=== PATIENT | female | born 1960 | race African-American/Black ===

== ENCOUNTER 2017-05-04 12:38 | Inpatient (IN) ==
--- NOTE | 2017-05-04 13:17 | Emergency Department Note ---
Arrival - Arrival Chief Complaint: Abdominal / Flank Pain Stated Complaint: abd pain ED Nursing Triage Note: Transfer from [facility] ER for further evaluation of appendicitis. Accepted by Dr Ramires. +right lower abdominal pain onset @ 1700pm. +subjective fever. Vomited x one earlier today. Mode of Arrival: Stretcher Limitations: No Limitations Source: Patient Time Seen by Provider: 05/04/17 13:13 - History of Present Illness HPI Narrative: This 49-year-old black female presents with 24 hours of progressive right lower quadrant pain ultimately presenting to the [place] ER. She was evaluated there but despite all normal laboratories CT of the abdomen did reveal evidence of acute appendix. For this reason she was transferred here for tertiary care. Currently she is medically stable but in significant discomfort demanding get this thing out of me. Onset (ago): hour(s) (Patient presents 24 hours post onset of symptoms) Date of Last Menstrual Period: PM Allergies/Adverse Reactions: Allergies Allergy/AdvReac Type Severity Reaction Status Date / Time Sulfa (Sulfonamide Allergy Unknown/Unable Verified 05/04/17 12:53 Antibiotics) to obtain sulfamethoxazole Allergy Unknown/Unable Verified 05/04/17 12:53 [From Bactrim] to obtain trimethoprim [From Bactrim] Allergy Unknown/Unable Verified 05/04/17 12:53 to obtain Review of System - Review of System 12 point system: reviewed and no additional remarkable complaints except as stated - Review of System Constitutional: Present: as per HPI Gastrointestinal: Present: as per HPI Medical,Surgical,& Family Hx - Medical History Cardio: History of: Cardiac Dysrhythmia (A-fib) Musculoskeletal: History of: Musculoskeletal Problems (Arthritis) - Surgical History Abdominal Surgeries: Surgical HX of: Cholecystectomy Reproductive Surgeries: Surgical HX of;: Hysterectomy - Social History Smoking Status: Never smoker Frequency of Alcohol Use: None Type of Drug Use: None Exam Physical Examination: GENERAL: Obese black female in no acute distress. HEENT: Normocephalic. No trauma. Moist mucous membranes. EOMI. PERRLA. ENT NML NECK: Supple. No adenopathy. CARDIAC: Regular. No murmurs. Heart rate 75 CHEST: Clear to auscultation. No respiratory distress. O2 sat 99% ABDOMEN: Soft. Very tender right lower quadrant. Hypoactive bowel sounds. EXTREMITIES: No trauma. Normal ROM. No pedal edema. SKIN: No diaphoresis. No rash. NEURO: Alert. Oriented 3. Motor, sensory, vibratory intact. No focal deficits. Vital Signs: Vital Signs Temperature 97.8 F 05/04/17 12:38 Pulse Rate 75 05/04/17 12:38 Respiratory Rate 20 05/04/17 12:38 Blood Pressure 174/88 05/04/17 12:38 O2 Sat by Pulse Oximetry 99 05/04/17 12:38 Course - Reevaluation(s) Reevaluation #1: Discussed with patient hospitalization and her quite boisterous demand to get this thing out of her - Consultations Consultation #1: Dr. Ramires consulted for surgical intervention which he will do immediately. Results - Impressions EKG sinus rhythm with prolonged ID interval but normal QRS duration. Left ventricular hypertrophy nonspecific ST changes. No acute injury pattern noted. Disposition Clinical Impression: Acute appendicitis Case discussed with: patient Disposition: Still a Patient Condition: Guarded Time of Disposition: 13:57
[2017-05-04] MEDS ORDERED: ONDANSETRON 4 MG/2 ML VIAL IV STA (13:19)
[2017-05-04] MEDS ORDERED: HYDROmorphone 2 MG/1 ML VIAL IV STA (13:19)
[2017-05-04] MEDS ORDERED: ONDANSETRON 4 MG/2 ML VIAL ONE ×2 (13:25→18:13)
[2017-05-04] MEDS ORDERED: HYDROmorphone 2 MG/1 ML VIAL ONE (13:26)
--- NOTE | 2017-05-04 13:38 | General Surg History&Physical ---
Assessment and Plan (1) Acute appendicitis Status: Acute Assessment and plan: This patient has CT proven acute appendicitis. I recommended laparoscopic appendectomy but of also discussed the option of medical management. The patient would like to proceed with laparoscopic appendectomy. I have discussed the risks, benefits, and alternatives of the operation, and the expected outcomes have been reviewed. She would like to proceed with operative intervention. Current Visit: Yes (2) Morbid obesity Status: Acute Assessment and plan: No acute intervention planned Current Visit: Yes History of Present Illness Chief complaint: Abdominal pain History of present illness: Ms. Ly is a 57 year old female with a history of morbid obesity who presents to the hospital with abdominal pain that started yesterday. She was diagnosed with appendicitis on CT scan at an outside hospital and transferred here for surgery. She is having a lot of abdominal pain but otherwise looks stable. Allergies Allergy/AdvReac Type Severity Reaction Status Date / Time Sulfa (Sulfonamide Allergy Unknown/Unable Verified 05/04/17 12:53 Antibiotics) to obtain sulfamethoxazole Allergy Unknown/Unable Verified 05/04/17 12:53 [From Bactrim] to obtain trimethoprim [From Bactrim] Allergy Unknown/Unable Verified 05/04/17 12:53 to obtain Medical,Surgical,& Family Hx - Medical History Cardio: History of: Cardiac Dysrhythmia (A-fib) Musculoskeletal: History of: Musculoskeletal Problems (Arthritis) - Surgical History Abdominal Surgeries: Surgical HX of: Cholecystectomy Reproductive Surgeries: Surgical HX of;: Hysterectomy - Social History Smoking Status: Never smoker Frequency of Alcohol Use: None Type of Drug Use: None Exam - Constitutional Vitals: Period Temp Pulse Resp BP Sys/Mijares Pulse Ox Last 24 Hr 97.8 F-97.8 F 75-75 20-20 174-174/88-88 99 General appearance: no acute distress, morbidly obese - Head Head exam: Present: normal inspection, normocephalic - Eye Eye exam: Present: EOMI Pupils: Present: KONSTANTIN - ENT ENT exam: Present: normal exam Mouth exam: Present: normal external inspection, normal voice - Neck Neck exam: Present: normal inspection, trachea midline - Respiratory Respiratory exam: Present: clear to auscultation bilaterally. Absent: accessory muscle use, chest wall tenderness - Cardiovascular Cardiovascular exam: Present: RRR. Absent: systolic murmur, tachycardia - GI/Abdominal GI/Abdominal exam: Present: normal bowel sounds, guarding, tenderness (Right lower quadrant tenderness), rebound, soft - Extremities Exam Extremities exam: Present: normal inspection, normal capillary refill - Back Exam Back exam: Present: normal inspection - Neurological Exam Neurological exam: Present: alert, oriented X3 Speech: Present: normal - Skin Skin exam: Present: normal color, warm - Constitutional Constitutional: Present: as per HPI - EENT Nose, mouth and throat: Present: as per HPI - Cardiovascular Cardiovascular: Present: as per HPI - Respiratory Respiratory: Present: as per HPI - Gastrointestinal Gastrointestinal: Present: as per HPI - Genitourinary Genitourinary: Present: as per HPI - Musculoskeletal Musculoskeletal: Present: as per HPI - Neurological Neurological: Present: as per HPI - Endocrine Endocrine: Present: as per HPI Hematologic/Lymphatic: Present: as per HPI Quality Measures - VTE Contraindication to Pharmacological VTE Prophylaxis: High Risk of Bleeding Results - Diagnostic Findings Procedure: CT Abdomen and Pelvis: image reviewed by me, report reviewed by me ( Acute nonperforated appendicitis)
[2017-05-04 14:08] LABS: PT Patient Result 10.9 SECS; Partial Thromboplastin Time 27.3 SECS (0-40)
[2017-05-04] MEDS ORDERED: ONDANSETRON 4 MG/2 ML VIAL IV PRN (14:46)
[2017-05-04] MEDS ORDERED: ACETAMINOPHEN 325 MG TABLET PO PRN (14:46)
[2017-05-04] MEDS: LACTATED RINGERS 1,000 ML IV SCH ×2 (15:36→22:29)
[2017-05-04] MEDS: HYDROmorphone 2 MG/1 ML VIAL IV PRN (16:08)
[2017-05-04] MEDS: PIPERACILLIN/TAZOBACTAM 3,375 MG in SODIUM CHLORIDE 0.9% 100 ML IV SCH (16:31)
[2017-05-04] MEDS ORDERED: LIDOCAINE 1%/EPI INJ 20 ML VIAL ONE (17:40)
[2017-05-04] MEDS ORDERED: BUPIVACAINE MPF 0.25% /EPI 30 ML VIAL ONE (17:40)
[2017-05-04] MEDS ORDERED: PROPOFOL 200 MG/20 ML VIAL IV ONE (18:13)
[2017-05-04] MEDS ORDERED: NEOSTIGMINE 10 MG/10 ML VIAL ONE (18:13)
[2017-05-04] MEDS ORDERED: LIDOCAINE 2% 5 ML VIAL ONE (18:13)
[2017-05-04] MEDS ORDERED: ROCURONIUM 100 MG/10 ML VIAL IV ONE (18:13)
[2017-05-04] MEDS ORDERED: GLYCOPYRROLATE 0.4 MG/2 ML VIAL ONE (18:13)
[2017-05-04] MEDS ORDERED: TISSUE ADHESIVE 1 EACH APPLICATOR TOP ONE (18:54)
--- NOTE | 2017-05-04 19:09 | Operative Note ---
Date of procedure: 05/04/17 Pre-op diagnosis: Acute appendicitis Post-op diagnosis: other (Acute gangrenous appendicitis) Procedure: Preoperative diagnosis Acute appendicitis Postoperative diagnosis Acute gangrenous appendicitis Procedures performed Laparoscopic appendectomy Findings Acute gangrenous appendicitis without perforation Blood loss 5 mL Anesthesia GETA Complications None apparent Specimen Appendix Indications Acute appendiceal. I discussed the option of medical treatment with antibiotics alone with the patient in detail. I discussed the failure rate of 25% with antibiotics alone and the requirement to stay in the hospital for several days of antibiotics and observation. The patient decided to proceed with laparoscopic appendectomy. I discussed the risks, benefits, and alternatives of the operation with the patient, and the expected outcomes were reviewed. In particular, I discussed the risk of bleeding, infection, wound complications, bowel obstruction, and ureteral injury. The patient elects to proceed with the operation. Description of procedure The patient was taken to the operating room and transferred to the operating table in the supine position. Pressure points were padded and SCDs were placed to bilateral lower extremities. General endotracheal anesthesia was administered. The abdominal hair was clipped with electric clippers and the abdomen was prepped with chlorhexidine and draped sterilely. Preoperative antibiotics were administered, and a timeout was performed. The abdomen was entered in the supraumbilical location in the right paramedian position with a Veress needle. Local anesthetic was administered and a 12 mm skin incision was made with an 11 blade scalpel. Penetrating towel clips were used to grasp the abdominal wall skin and a Veress needle was used into the peritoneal cavity. Intra-peritoneal location was confirmed with a double click technique. Aspiration was negative. Saline drop test confirmed intraperitoneal location. The abdomen was insufflated to 15 mmHg with initial insufflation pressure of 7 mmHg. The Veress needle was removed and a 12 mm trocar was placed bluntly. Diagnostic laparoscopy was then performed. There was no evidence of Veress needle or trocar injury. The patient was placed in Trendelenburg and left side rolled down position. Under direct visualization, and after local anesthetic was administered, 2 additional 5 mm trochars were placed in the suprapubic position in the left lower quadrant position. The bowel was then moved out of the right lower quadrant and the appendix was visualized. The appendix was gangrenous but there is no pus in the abdomen. There is a small amount of fluid in the abdomen that did not appear purulent. The appendix was not perforated. The appendix was grasped and retracted towards the patient's feet in a window in the appendiceal mesentery was created with [place] dissector. JANEEN stapler was then used to transect the base of the appendix. The appendiceal mesentery was also divided using vascular staple loads. The right lower quadrant was focally suction irrigated. This was done until the effluent was clear. The appendix was placed in Endo Catch bag and removed through the 12 mm trocar site. The CO2 was then released from the abdomen and the trochars were removed. Skin incisions were closed with 4-0 Monocryl and sterile skin glue was applied. The patient was awakened from anesthesia and transferred to recovery. Postoperative plan Diet as tolerated Follow-up in 2 weeks Anesthesia: ANTONIETTA, local Surgeon / Physician: Hamlet Ramires Estimated blood loss: minimal Specimens: other (appendix) Condition: stable Disposition: PACU Discharge Plan - Discharge Medications No Action Cetirizine HCl [Cetirizine Tab] 10 mg PO DAILY Cholecalciferol (Vitamin D3) [Vitamin D3] 50,000 unit PO TH Potassium Chloride 20 meq PO BID Linaclotide [Linzess] 290 mcg PO BEDTIME Hydrocodone/Acetaminophen [Hydrocodon-Acetaminophn 10-325] 1 each PO DAILY PRN PRN Reason: Pain Furosemide Tab [Lasix Tab] 40 mg PO DAILY Sucralfate Tab [Carafate Tab] 1 gm PO DAILY Latanoprost [Latanoprost 0.005 % Oph Soln] 1 drop BOTH EYES BEDTIME Diclofenac 1% Gel [Voltaren 1% Gel] 1 applic TOP DAILY Digoxin Tab [Lanoxin Tab] 0.25 mg PO DAILY - Follow Up or Referral - Forms/Instructions
[2017-05-04] MEDS ORDERED: MIDAZOLAM 2 MG/2 ML VIAL ONE (19:24)
[2017-05-04] MEDS ORDERED: fentaNYL 100 MCG/2 ML VIAL ONE (19:25)
[2017-05-05] MEDS: HYDROmorphone 2 MG/1 ML VIAL IV PRN ×2 (00:02→23:46)
[2017-05-05] MEDS: PIPERACILLIN/TAZOBACTAM 3,375 MG in SODIUM CHLORIDE 0.9% 100 ML IV SCH ×4 (00:10→23:41)
[2017-05-05] MEDS ORDERED: DIGOXIN 0.25 MG TABLET PO ONE (00:28)
[2017-05-05] MEDS ORDERED: METOPROLOL TARTRATE 5 MG/5 ML VIAL IV ONE (00:33)
[2017-05-05] MEDS: LACTATED RINGERS 1,000 ML IV SCH ×4 (05:27→23:48)
--- NOTE | 2017-05-05 06:04 | EKG Report ---
Stationary ECG Study [facility] ER Test Date: 05/04/2017 1:56:31 PM Pat Name: MESSI JIMÉNEZ Department: Room: 345 Gender: F Management Rep: : 1960 Requested by: Karson Albright Order Number: [id number] Reading MD: DAREK RICHARDS Intervals [place] Rate: 80 P: 28 LA: 251 QRS: 19 QRSD: 93 T: -18 QT: 336 QTc: 372 Interpretive Statements SINUS RHYTHM WITH PROLONGED LA INTERVAL VOLTAGE CRITERIA FOR LVH Electronically Signed On 05-05-17 06:32:19 CDT by DAREK RICHARDS [email or web address]
--- NOTE | 2017-05-05 06:12 | EKG Report ---
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
[2017-05-05 06:39] LABS: Basophils % 0.4 % (0.0-0.8); Eosinophils # 0.1 10*3/uL (0.0-0.87); Eosinophils % 0.5 % (0.00-10.9); Hematocrit 32.5 VOL% (35.7-47.0); Hemoglobin 10.5 GM/DL (12.0-16.0); Immature Granulocytes % 0.5 %; Immature Granulocytes Absolute 0.05 #; Lymphocytes # 1.5 10*3/uL (1.4-4.0); Lymphocytes % 14.5 % (21.3-54.2); Mean Corpuscular HGB Conc 32.3 GM/DL (32-36); Mean Corpuscular Hemoglobin 27 PG (27-34); Mean Corpuscular Volume 83.5 FL (87-102); Mean Platelet Volume 11.3 FL (9.6-12.0); Monocytes # 1.1 10*3/uL (0.11-0.8); Monocytes % 11.4 % (1.7-12.7); Neutrophils # 7.3 10*3/uL (1.4-7.4); Neutrophils % 72.7 % (38.7-73.9); Platelet Count 199 T/CUMM (130-400); Red Blood Count 3.89 MC/CUMM (3.8-5.5)
[2017-05-05 07:02] LABS: Calcium 8.3 MG/DL (8.5-10.1); Magnesium 1.9 MG/DL (1.8-2.4); Osmolality,Calculated 280.1 MOS/KG (273-304); Potassium 3.5 MMOL/L (3.5-5.1)
[2017-05-05 07:27] LABS: Hypochromasia 1+; Platelet Estimate Adequate
[2017-05-05] MEDS: PANTOPRAZOLE 40 MG TABLET PO SCH (08:05)
[2017-05-05] MEDS: POTASSIUM CHLORIDE 20 MEQ TABLET PO SCH ×2 (10:38→21:23)
[2017-05-05] MEDS: CETIRIZINE 10 MG TABLET PO SCH (10:38)
[2017-05-05] MEDS: SUCRALFATE 1 GM TABLET PO SCH (10:38)
[2017-05-05] MEDS: FUROSEMIDE 40 MG TABLET PO SCH (10:38)
[2017-05-05] MEDS: DICLOFENAC 1% GEL 100 GM TUBE TOP SCH (10:41)
[2017-05-05] MEDS ORDERED: DIGOXIN 0.25 MG TABLET PO SCH (13:00)
[2017-05-05] MEDS ORDERED: LATANOPROST 0.005% OPH SOLN 2.5 ML BOTTLE BOTH EYES SCH (21:00)
[2017-05-05] MEDS ORDERED: LINACLOTIDE 145 MCG CAPSULE PO SCH (21:00)
--- NOTE | 2017-05-05 21:10 | Event Note ---
General Surgery Progress Note Chief complaint This patient is a 57-year-old woman admitted with acute gangrenous appendicitis treated with laparoscopic appendectomy on 05/04/2017 Interval history The patient feels much better today. No nausea or vomiting. Feels hungry. No flatus or bowel movements yet. Pain is well controlled. Afebrile. The patient did have some tachycardia to the 140s but she has had episodes like this in the past and likely has paroxysmal A. fib for which she is on digoxin. It has resolved this morning and EKG actually just showed sinus tachycardia. Lab work is unremarkable this morning. Physical exam Afebrile, normal vital signs this morning Heart is regular Chest is clear Abdomen is soft and appropriately tender with normal bowel sounds Labs Reviewed, as above Imaging None new Assessment and plan Regular diet DC IV fluids Plan for discharge home tomorrow if doing well
--- NOTE | 2017-05-06 07:58 | Discharge Summary ---
Hospital Course - Hospital Course Hospital Course: 57-year-old female with history of paroxysmal A. fib, morbid obesity, and arthritis admitted by Dr. Ramires on 05/04/[address] proven acute appendicitis. She was taken to the operating room on 05/04/2017 for laparoscopic appendectomy where he found an acute gangrenous appendicitis without perforation. Postoperatively she did have a little bit of nausea and she did become tachycardic in the 140s on postop day 1. She does have paroxysmal A. fib but she is on diltiazem. quality assurance monitor body showed sinus tachycardia but this is all resolved as of now. Patient is tolerating a diet and her pain is controlled. She will be discharged home with a 1-2 week follow-up with Dr. Ramires. Patient has been afebrile and her white count is normal so discharge antibiotics are not necessary. Complete discharge instructions were given. Care coordination, chart review, and completed discharge paperwork took approximately 35 minutes. - Time spent with patient Time with patient DS: Greater than 30 minutes Diagnosis - Discharge Diagnosis (1) Paroxysmal atrial fibrillation Status: Chronic (2) Arthritis Status: Chronic (3) Acute appendicitis Status: Resolved (4) Morbid obesity Status: Chronic Specialty Discharge - Follow Up or Referrals Follow up with: Hamlet Ramires MD [Physician] - Discharge Plan - Discharge Data Disposition: Disch To Home/Self Care Condition at Discharge: Stable Discharge Diet: advance to your usual diet Activity: increase activity as tolerated, no lifting Hygiene: may shower Driving: other (No driving if taking pain pills) Contact your physician if you experience:: fever over 101, Nausea/Vomiting - Discharge Medications New HYDROcodone/ACETAMIN 7.5-325 [Slater 7.5-325] 1 tablet PO Q4H PRN #30 tablet PRN Reason: Pain Moderate (4-7) Continue Cetirizine HCl [Cetirizine Tab] 10 mg PO DAILY Cholecalciferol (Vitamin D3) [Vitamin D3] 50,000 unit PO TH Potassium Chloride 20 meq PO BID Linaclotide [Linzess] 290 mcg PO BEDTIME Furosemide Tab [Lasix Tab] 40 mg PO DAILY Sucralfate Tab [Carafate Tab] 1 gm PO DAILY Latanoprost [Latanoprost 0.005 % Oph Soln] 1 drop BOTH EYES BEDTIME Diclofenac 1% Gel [Voltaren 1% Gel] 1 applic TOP DAILY Digoxin Tab [Lanoxin Tab] 0.25 mg PO DAILY Discontinued Hydrocodone/Acetaminophen [Hydrocodon-Acetaminophn 10-325] 1 each PO DAILY PRN PRN Reason: Pain - Follow Up or Referral Follow Up: Hamlet Ramires MD [Physician] - 1 Week - Forms/Instructions Exam - Constitutional Vitals: Period Temp Pulse Resp BP Sys/Mijares Pulse Ox Last 24 Hr 97.4 F-98.5 F 78-83 16-20 125-158/68-84 95-100 Exam: 57-year-old morbidly obese female, no acute distress, alert and oriented Chest clear CV regular rate and rhythm Abdomen obese, appropriately tender, incisions look good Extremities mild pedal edema DS: Provider Date of admission: 05/04/17 13:33 Primary care physician: . No PCP Attending physician on admission: Hamlet Ramires MD Consults: 05/04/17 13:34 Consult to Anesthesiology [CONS] Routine Consulting Provider: Reason for Anesthesiology: Pre-op Clearance Discharging clinician: JACOB Ruiz Expected date of discharge: 05/06/17
[2017-05-06] MEDS: PANTOPRAZOLE 40 MG TABLET PO SCH (09:23)
[2017-05-06] MEDS: FUROSEMIDE 40 MG TABLET PO SCH (09:23)
[2017-05-06] MEDS: SUCRALFATE 1 GM TABLET PO SCH (09:23)
[2017-05-06] MEDS: CETIRIZINE 10 MG TABLET PO SCH (09:23)
[2017-05-06] MEDS: POTASSIUM CHLORIDE 20 MEQ TABLET PO SCH (09:23)
[2017-05-06] MEDS: PIPERACILLIN/TAZOBACTAM 3,375 MG in SODIUM CHLORIDE 0.9% 100 ML IV SCH (10:07)
[2017-05-06] MEDS: DICLOFENAC 1% GEL 100 GM TUBE TOP SCH (10:08)
[2017-05-06 11:14] VITALS: BP 154/87
--- NOTE | 2017-05-07 13:10 | Pathology Report from [facility] ---
[facility] [place] : [id number] PATIENT NAME : Elsy Jiménez ORDERING DR : Hamlet Ramires MD CLINICAL HX: Appendicitis POST-OP DX: Same SPECIMEN INFO: Appendix GROSS DESCRIPTION: Received in formalin labeled ELSY JIMÉNEZ is an appendix with attached mesoappendiceal fat measuring 9.9 x 1.8 cm. The serosa is erythematous with fibrous exudate present. The lumen is focally dilated containing gritty hemorrhagic gelatinous material with a 1 cm fecalith present. No perforations are identified. Hand Knitter sections are submitted in cassettes A & B. DIAGNOSIS FOR ELSY JIMÉNEZ: APPENDIX, APPENDECTOMY: Acute suppurative appendicitis with fecalith. COLLECTED DATE: 05/05/2017 [facility] [place] DATE: 05/06/2017 ELECTRONICALLY SIGNED BY: Ronald Cooney M.D. 05/06/2017 - 9:27:01 [facility]
[2017-05-08] MEDS ORDERED: ERGOCALCIFEROL 50,000 UNIT CAPSULE PO SCH (09:35)
== END 2017-05-06 13:00 | disposition home or self-care (01) | DRG 342 ==
LOC: EDBD → EDUNIT# → N.ED 12:38 → N.EDINP 13:33 → N.3E 14:35
PROVIDERS: ADMIT Surgery; ATTEND Surgery

== ENCOUNTER 2019-05-19 12:07 | Observation (INO) ==
[2019-05-19] MEDS ORDERED: ASPIRIN 325 MG TABLET PO STA (12:39)
[2019-05-19 13:09] LABS: Basophils % 0.7 % (0.0-0.8); Eosinophils # 0.1 10*3/uL (0.0-0.87); Eosinophils % 1.5 % (0.00-10.9); Hematocrit 38.7 VOL% (35.7-47.0); Hemoglobin 11.9 GM/DL (12.0-16.0); Immature Granulocytes % 0.2 %; Immature Granulocytes Absolute 0.01 #; Lymphocytes # 1.7 10*3/uL (1.4-4.0); Lymphocytes % 30.5 % (21.3-54.2); Mean Corpuscular HGB Conc 30.7 GM/DL (32-36); Mean Corpuscular Volume 86.8 FL (87-102); Mean Platelet Volume 10.9 FL (9.6-12.0); Monocytes % 9.1 % (1.7-12.7); Platelet Count 230 T/CUMM (130-400); Red Blood Count 4.46 MC/CUMM (3.8-5.5); Red Cell Distribution Width 14.1 % (9.3-17.3); White Blood Count 5.5 T/CUMM (4-12)
[2019-05-19 13:34] LABS: Alanine Aminotransferase 15 U/L (13-56); Albumin 3.1 G/DL (3.4-5.0); Alkaline Phosphatase 118 U/L (45-117); Aspartate Amino Transferase 13 U/L (0-37); Bilirubin,Total < 0.39 MG/DL (0.2-1.0); Blood Urea Nitrogen 18 MG/DL (7-18); Calcium 8.9 MG/DL (8.5-10.1); Glucose 105 MG/DL (74-106); Osmolality,Calculated 287.8 MOS/KG (273-304); Total Protein 7.6 G/DL (6.4-8.3)
[2019-05-19 13:35] LABS: Barbiturates Screen,Urine Negative (Negative); Benzodiazepines Screen,Urine Negative (Negative); Cannabinoid Screen,Urine Negative (Negative); Opiate Screen,Urine Negative (Negative); Phencyclidine Screen,Urine Negative (Negative)
[2019-05-19 13:36] LABS: Apearance,Urine Slightly Hazy (Clear); Bilirubin,Urine Negative (Negative); Blood, Urine Negative (Negative); Glucose,Urine (UA) Negative (Negative); Ketones,Urine Negative (Negative); Mucus,Urine Occasional /LPF (Occasional); Nitrite,Urine Negative (Negative); Protein,Urine Negative; RBC,Urine 1 /HPF (0-4); Squamous Epithelial Cell,Urine Few /HPF (0-10); Urine Color Yellow (Yellow); Urine Specific Gravity 1.016 (1.001-1.035); Urine Urobilinogen < 2.0 EU/DL (0.2-1.0); WBC,Urine 2 /HPF (0-6)
[2019-05-19] MEDS ORDERED: KETOROLAC 30 MG/1 ML VIAL IV STA (14:32)
[2019-05-19] MEDS ORDERED: ACETAMINOPHEN 325 MG TABLET PO PRN (15:05)
[2019-05-19] MEDS ORDERED: ONDANSETRON 4 MG/2 ML VIAL IV PRN (15:05)
[2019-05-19] MEDS ORDERED: MECLIZINE 25 MG TABLET PO PRN (15:09)
[2019-05-19] MEDS ORDERED: IBUPROFEN 400 MG TABLET PO PRN (15:11)
[2019-05-19 16:22] LABS: Risk Ratio 2.63; Thyroid Stimulating Hormone 1.3 uIU/ml (0.358-3.74)
[2019-05-19] MEDS: SODIUM CHLORIDE 0.9% 1,000 ML IV SCH (18:00)
[2019-05-19] MEDS: POTASSIUM CHLORIDE 20 MEQ TABLET PO SCH (20:32)
[2019-05-19] MEDS ORDERED: ENOXAPARIN 40 MG/0.4 ML SYRINGE SUBCUT SCH (21:00)
[2019-05-19] MEDS ORDERED: DOCUSATE SODIUM 100 MG CAPSULE PO PRN (21:00)
[2019-05-19] MEDS ORDERED: LATANOPROST 0.005% OPH SOLN 2.5 ML BOTTLE BOTH EYES SCH (21:00)
[2019-05-20 05:26] LABS: Basophils # 0.1 10*3/uL (0.0-0.2); Basophils % 1.1 % (0.0-0.8); Eosinophils # 0.1 10*3/uL (0.0-0.87); Eosinophils % 2.5 % (0.00-10.9); Hematocrit 35.7 VOL% (35.7-47.0); Hemoglobin 11.2 GM/DL (12.0-16.0); Immature Granulocytes % 0.2 %; Immature Granulocytes Absolute 0.01 #; Lymphocytes # 1.7 10*3/uL (1.4-4.0); Mean Corpuscular HGB Conc 31.4 GM/DL (32-36); Mean Corpuscular Volume 86.2 FL (87-102); Mean Platelet Volume 11.7 FL (9.6-12.0); Monocytes % 12.2 % (1.7-12.7); Platelet Count 211 T/CUMM (130-400); Red Blood Count 4.14 MC/CUMM (3.8-5.5); Red Cell Distribution Width 14.2 % (9.3-17.3); White Blood Count 4.7 T/CUMM (4-12)
[2019-05-20 05:37] LABS: Alanine Aminotransferase 13 U/L (13-56); Albumin 2.7 G/DL (3.4-5.0); Alkaline Phosphatase 105 U/L (45-117); Aspartate Amino Transferase 10 U/L (0-37); Bilirubin,Total < 0.39 MG/DL (0.2-1.0); Blood Urea Nitrogen 17 MG/DL (7-18); Calcium 8.8 MG/DL (8.5-10.1); Glucose 93 MG/DL (74-106); Osmolality,Calculated 284.1 MOS/KG (273-304)
[2019-05-20] MEDS: SODIUM CHLORIDE 0.9% 1,000 ML IV SCH (06:46)
[2019-05-20] MEDS: POTASSIUM CHLORIDE 20 MEQ TABLET PO SCH (08:12)
[2019-05-20] MEDS ORDERED: CETIRIZINE 10 MG TABLET PO SCH (09:00)
[2019-05-20] MEDS ORDERED: FUROSEMIDE 40 MG TABLET PO SCH (09:00)
[2019-05-20] MEDS ORDERED: DIGOXIN 0.25 MG TABLET PO SCH (09:00)
[2019-05-20] MEDS ORDERED: DEXAMETHASONE 4 MG/1 ML VIAL IM ONE (13:24)
[2019-05-20] MEDS ORDERED: methylPREDNISolone ACETATE 40 MG/1 ML VIAL IM ONE (13:24)
[2019-05-20 15:41] VITALS: BP 137/70
== END 2019-05-20 17:54 | disposition home or self-care (01) ==
LOC: N.EDINP 12:07 → N.ED 12:07 → N.TELES 16:56
PROVIDERS: ADMIT Internal Medicine; ATTEND Internal Medicine